=== PATIENT | female | born 1935 | race Caucasian/White ===

== ENCOUNTER 2019-08-06 17:53 | Emergency (ER) | payer MEDICARE ==
[~2019-08-06] VITALS: Ht 167.6 cm; Wt 65.3 kg
--- NOTE | 2019-08-06 18:20 | NUR ---
ARRIVAL: 84 YEAR OLD FEMALE AMBULATES INTO ER C/O ELEVATED B/P. STARTED CHEMO FOR BREAST CANER 2 WEEKS AGO. DAUGHTER AT BEDSIDE
--- NOTE | 2019-08-06 19:01 | ER.PDOC ---
General Chief Complaint: Requesting Medical Care Stated Complaint: HIGH BP TRAVEL OUT OF US: No Time seen by MD: 19:00 Source: patient Exam Limitations: no limitations History of Present Illness Initial Comments Elevated blood pressure Timing/Duration: 4-6 hours Severity: moderate Associated Symptoms: denies symptoms Past Medical History Medical History: other (HTN) Review of Systems Constitutional: no symptoms reported EENTM: no symptoms reported Respiratory: no symptoms reported Cardiovascular: see HPI Gastrointestinal: no symptoms reported All Other Systems: Reviewed and Negative Physical Exam General Appearance: No Apparent Distress, WD/WN Neck: Non-Tender, Full Range of Motion, Supple, Normal Inspection Respiratory: chest non-tender, lungs clear, normal breath sounds, no respiratory distress CVS: reg rate & rhythm, no murmur, no gallop, pulses nml, nml capillary refill Gastrointestinal: Normal Bowel Sounds, No Organomegaly, No Pulsatile Mass, Non Tender Back: Normal Inspection Extremities: Normal Range of Motion Neurologic/Psychiatric: draft roller picker II-XII NML as Tested Skin: Normal Color Results/Orders Results/Orders Orders - ALEXIS FREDERICK MD Cbc With Auto Diff (08/06/19 18:59) Comprehensive Metabolic Panel (08/06/19 18:59) Troponin I (08/06/19 18:59) Ekg-Routine (08/06/19 18:59) Vital Signs Date Time Temp Pulse Resp B/P (MAP) Pulse Ox O2 Delivery O2 Flow Rate FiO2 08/06/19 19:07 98.2 74 16 08/06/19 19:06 98.2 74 16 189/86 (120) 98 Room Air 08/06/19 18:20 98.2 74 16 98 Room Air Laboratory Tests Test 08/06/19 19:09 08/06/19 19:24 White Blood Count 1.7 10^3/uL (4.5-11.0) *L Red Blood Count 2.82 10^6/uL (4.00-5.20) L Hemoglobin 9.2 g/dL (12.0-15.0) L Hematocrit 27.4 % (36.0-46.0) L Mean Corpuscular Volume 97.2 fL (78-100) Mean Corpuscular Hemoglobin 32.6 pg (26-34) Mean Corpuscular Hemoglobin Concent 33.6 g/dL (33-37) Red Cell Distribution Width 16.3 % (11.5-14.5) H Platelet Count 125 10^3/uL (150-400) L Mean Platelet Volume 9.3 fL (7.8-11.0) Neutrophils (%) (Auto) 50.6 % (41.0-85.0) Lymphocytes (%) (Auto) 41.6 % (24.0-44.0) Monocytes (%) (Auto) 4.2 % (5.0-12.0) L Neutrophils # (Auto) 0.8 10^3/uL (1.8-7.7) L Lymphocytes # (Auto) 0.7 10^3/uL (1.0-4.8) L Monocytes # (Auto) 0.1 10^3/uL (0.3-0.8) L Absolute Immature Granulocyte (auto 0 10^3 u/L (0-2) Immature Granulocytes % 0.00 % (0.00-0.50) Eosinophils % 3.0 % (0.0-5.0) Basophils % 0.6 % (0.0-0.2) H Basophils # 0.0 10^3/uL (0.0-0.1) Eosinophil Count 0.1 10^3/uL (0.0-0.2) Sodium Level 130 mmol/L (132-145) L Potassium Level 3.5 mmol/L (3.6-5.2) L Chloride Level 96.0 mmol/L (96-109) Carbon Dioxide Level 23.6 mmol/L (20.0-32) Anion Gap 13.9 Blood Urea Nitrogen 13 mg/dL (7-18) Creatinine 0.92 mg/dL (0.59-1.40) Estimated GFR () 70.5 (>/=60) BUN/Creatinine Ratio 14.0 Glucose Level 97 mg/dL (70-110) Calcium Level 8.7 mg/dL (8.4-10.5) Total Bilirubin 0.6 mg/dL (0.2-1.0) Aspartate Amino Transferase (AST) 17 U/L (0-35) Alanine Aminotransferase (ALT) 16 U/L (12-78) Alkaline Phosphatase 89 U/L (50-136) Troponin I 0.03 ng/mL (0.00-0.05) Total Protein 6.8 g/dL (6.4-8.2) Albumin 3.5 g/dL (3.4-5.0) Globulin 3.3 Differential Total Cells Counted 100 #CELLS Segmented Neutrophils 46 % (31-76) Lymphocytes 44 % (25-36) H Monocytes 4 % (3-9) Basophils 2 % (0-2) Atypical Lymphocytes 4 % Platelet Estimate ADEQUATE Platelet Morphology NORMAL Hypochromasia 1+ (NEGATIVE) Poikilocytosis 1+ (NEGATIVE) Progress Progress WBC is 1.7, patient is on chemotherapy for stage 4 breast cancer. EKG/XRAY/CT/US EKG: NSR Course Vitals & review Data Vital Sign - Last 24 Hours 08/06/19 08/06/19 08/06/19 18:20 19:06 19:07 Temp 98.2 98.2 98.2 Pulse 74 74 74 Resp 16 16 16 B/P (MAP) 189/86 (120) Pulse Ox 98 98 O2 Delivery Room Air Room Air Laboratory Tests Test 08/06/19 19:09 08/06/19 19:24 White Blood Count 1.7 10^3/uL Red Blood Count 2.82 10^6/uL Hemoglobin 9.2 g/dL Hematocrit 27.4 % Mean Corpuscular Volume 97.2 fL Mean Corpuscular Hemoglobin 32.6 pg Mean Corpuscular Hemoglobin Concent 33.6 g/dL Red Cell Distribution Width 16.3 % Platelet Count 125 10^3/uL Mean Platelet Volume 9.3 fL Neutrophils (%) (Auto) 50.6 % Lymphocytes (%) (Auto) 41.6 % Monocytes (%) (Auto) 4.2 % Neutrophils # (Auto) 0.8 10^3/uL Lymphocytes # (Auto) 0.7 10^3/uL Monocytes # (Auto) 0.1 10^3/uL Absolute Immature Granulocyte (auto 0 10^3 u/L Immature Granulocytes % 0.00 % Eosinophils % 3.0 % Basophils % 0.6 % Basophils # 0.0 10^3/uL Eosinophil Count 0.1 10^3/uL Sodium Level 130 mmol/L Potassium Level 3.5 mmol/L Chloride Level 96.0 mmol/L Carbon Dioxide Level 23.6 mmol/L Anion Gap 13.9 Blood Urea Nitrogen 13 mg/dL Creatinine 0.92 mg/dL Estimated GFR () 70.5 BUN/Creatinine Ratio 14.0 Glucose Level 97 mg/dL Calcium Level 8.7 mg/dL Total Bilirubin 0.6 mg/dL Aspartate Amino Transf (AST/SGOT) 17 U/L Alanine Aminotransferase (ALT/SGPT) 16 U/L Alkaline Phosphatase 89 U/L Troponin I 0.03 ng/mL Total Protein 6.8 g/dL Albumin 3.5 g/dL Globulin 3.3 Differential Total Cells Counted 100 #CELLS Segmented Neutrophils 46 % Lymphocytes 44 % Monocytes 4 % Basophils 2 % Atypical Lymphocytes 4 % Platelet Estimate ADEQUATE Platelet Morphology NORMAL Hypochromasia 1+ Poikilocytosis 1+ Departure Time of Disposition: 20:50 Disposition: 01 HOME, SELF-CARE Impression: Primary Impression: Uncontrolled hypertension Condition: Improved Referrals: PCP,UNKNOWN (PCP) PRIMARY CARE PROVIDER Additional Instructions: Keep a blood pressure diary F/U with your PCP tomorrow F/U with your Oncologist this week as scheduled. Duration or Time Spent with Pa: 60 mins ALEXIS FREDERICK MD Aug 06, 2019 19:01
[2019-08-06 19:06] VITALS: BP 189/86
[2019-08-06 19:07] VITALS: BP 189/86
--- NOTE | 2019-08-06 19:20 | NUR ---
UPDATE: LAB CALLED WITH LOW WBC OF 1.66, STARTED CHEMO [address] ESPINOZA NOTIFIED.
[2019-08-06 19:22] LABS: BASOPHIL % 0.6 % (0.0-0.2); EOSINOPHIL # 0.1 10^3/uL (0.0-0.2); HEMOGLOBIN 9.2 g/dL (12.0-15.0); LYMPHOCYTES # 0.7 10^3/uL (1.0-4.8); LYMPHOCYTES % 41.6 % (24.0-44.0); MEAN CELL HGB 32.6 pg (26-34); MEAN CELL HGB CONCENTRATION 33.6 g/dL (33-37); MEAN CORP VOLUME 97.2 fL (78-100); MEAN PLATELET VOLUME 9.3 fL (7.8-11.0); MONOCYTES # 0.1 10^3/uL (0.3-0.8); MONOCYTES % 4.2 % (5.0-12.0); NEUTROPHIL # 0.8 10^3/uL (1.8-7.7); NEUTROPHILS % 50.6 % (41.0-85.0); RED CELL DISTRIBUTION WIDTH 16.3 % (11.5-14.5)
[2019-08-06 19:24] LABS: WHITE BLOOD CELL 1.7 10^3/uL (4.5-11.0)
--- NOTE | 2019-08-06 19:32 | PCM.EKG ---
[facility] Test Date: 2019-08-06 Test Time: 19:13:08 Pat Name: GINA JULES Department: Room: Gender: F [employer] Operator: BRYAN : 1935 Requested By: ALEXIS FREDERICK Order Number: [id number] Reading MD: Alexis FREDERICK Measurements Intervals [place] Rate: 66 P: 87 MT: 182 QRS: 68 QRSD: 82 T: 65 QT: 422 QTc: 442 Interpretive Statements Sinus rhythm with premature atrial complexes Anterior infarct, age undetermined Abnormal ECG No previous ECG available for comparison Electronically Signed On 08-07-2019 5:21:29 CDT by Alexis FREDERICK Please click the below link to view image of tracing.
[2019-08-06 19:40] LABS: CALCIUM 8.7 mg/dL (8.4-10.5); CARBON DIOXIDE 23.6 mmol/L (20.0-32)
[2019-08-06 19:47] LABS: LYMPHOCYTE 44 % (25-36); MONOCYTE 4 % (3-9); SEGMENTED NEUTROPHILS 46 % (31-76)
[2019-08-06 19:48] LABS: BASOPHIL 2 % (0-2)
[2019-08-06 20:00] VITALS: BP 160/69
[2019-08-06 21:00] VITALS: BP 196/67
[2019-08-06] MEDS: NITROSTAT SL PRN (21:00)
[2019-08-06 21:25] VITALS: BP 164/70
== END 2019-08-06 21:35 | disposition home or self-care (01) ==
LOC: ER 17:53
DX: I10 Essential (primary) hypertension (principal)
CPT/HCPCS: 36415; 80053; 84484; 85025; 93005; 99283

== ENCOUNTER → 2019-08-26 | Outpatient (CLI) | payer MEDICARE ==
[2019-08-26 11:03] LABS: MEAN CORP HGB 33.6 pg (26-34); RED CELL DISTRIBUTION WIDTH 19.8 % (11.5-14.5)
[2019-08-26 11:18] LABS: BASOPHIL % 0.7 % (0.0-0.2); EOSINOPHIL # 0.1 10^3/uL (0.0-0.2); EOSINOPHIL % 2.2 % (0.0-5.0); LYMPHOCYTES # 0.6 10^3/uL (1.0-4.8); LYMPHOCYTES % 21.5 % (24.0-44.0); MONOCYTES # 0.4 10^3/uL (0.3-0.8); MONOCYTES % 15.3 % (5.0-12.0); NEUTROPHIL # 1.7 10^3/uL (1.8-7.7); NEUTROPHILS % 59.9 % (41.0-85.0)
== END | disposition home or self-care (01) ==
LOC: LAB 10:44
PROVIDERS: ATTEND Internal Medicine
DX: C50.412 Malignant neoplasm of upper-outer quadrant of left female breast (principal)
CPT/HCPCS: 36415; 85025

== ENCOUNTER → 2019-09-09 | Outpatient (CLI) | payer MEDICARE ==
[2019-09-09 09:57] LABS: BASOPHIL % 0.7 % (0.0-0.2); EOSINOPHIL % 2.7 % (0.0-5.0); HEMOGLOBIN 9.2 g/dL (12.0-15.0); LYMPHOCYTES # 0.5 10^3/uL (1.0-4.8); MEAN CELL HGB 33.8 pg (26-34); MEAN CELL HGB CONCENTRATION 33.2 g/dL (33-37); MEAN CORP VOLUME 101.8 fL (78-100); MEAN PLATELET VOLUME 8.8 fL (7.8-11.0); MONOCYTES # 0.2 10^3/uL (0.3-0.8); MONOCYTES % 10.2 % (5.0-12.0); NEUTROPHIL # 0.8 10^3/uL (1.8-7.7); NEUTROPHILS % 52.4 % (41.0-85.0); RED CELL DISTRIBUTION WIDTH 19.6 % (11.5-14.5)
[2019-09-09 10:05] LABS: WHITE BLOOD CELL 1.5 10^3/uL (4.5-11.0)
[2019-09-09 11:00] LABS: BAND NEUTROPHILS 0 % (2-6); LYMPHOCYTE 33 % (25-36); SEGMENTED NEUTROPHILS 52 % (31-76)
[2019-09-09 11:01] LABS: BASOPHIL 2 % (0-2); BLAST 0 %; EOSINOPHIL 2 % (1-4); MONOCYTE 9 % (3-9); MYELOCYTES 1 %; NUCLEATED RED BLOOD CELLS 0 % (0-0); OTHER CELL TYPE 0; PLASMA CELLS 0; PROMYELOCYTES 0 %
[2019-09-09 11:02] LABS: ANISOCYTOSIS 1+ (NEGATIVE); DIFFERENTIAL COMMENT NORMAL; MICROCYTOSIS 1+ (NEGATIVE)
== END | disposition home or self-care (01) ==
LOC: LAB 09:43
PROVIDERS: ATTEND Internal Medicine
DX: C50.412 Malignant neoplasm of upper-outer quadrant of left female breast (principal)
CPT/HCPCS: 36415; 85025